=== PATIENT | male | born 1960 | race Caucasian/White ===

== ENCOUNTER 2020-10-30 13:46 | Outpatient (CLI) | payer OTHER ==
[~2020-10-30 13:46] MED LIST: PERCOCET 5/3251 TAB PO; POLY119PG PO; SURFAK240 M1 PO
== END 2020-10-30 13:52 | disposition home or self-care (01) ==
LOC: TOM 13:46
DX: K43.2 Incisional hernia without obstruction or gangrene (principal); R10.9 Unspecified abdominal pain

== ENCOUNTER 2021-02-03 12:18 | Inpatient (IN) | payer OTHER ==
[~2021-02-03] VITALS: Ht 175.3 cm; Wt 120.2 kg
[2021-02-03] MEDS ORDERED: LOSARTAN-HCTZ1 EAC2 (12:24)
[2021-02-03] MEDS ORDERED: SYMBICORT 16010.2 GM (12:25)
[2021-02-03] MEDS ORDERED: SINGULAIR10 MG PO (12:25)
--- NOTE | 2021-02-03 12:28 | NUR ---
PACIENTE MASCULINO ALERTA Y ORIENTADO, REFIERE TENER DOLOR DE PECHO Y UNAS PUNZADAS. SE LE REALIZA EKG AL PACIENTE Y SE LE MUESTRA A ROBERTO.RENTA REFIERE COLOCARLO EN CHEST PAIN.
--- NOTE | 2021-02-03 12:58 | NUR ---
SE RECIBE A PACIENTE EN UNIDAD DE CHEST PAIN. PACIENTE ALERTA Y ORIENTADO EN LAS JATINDER ESFERAS LLEGA A LA UNIDAD AMBULANDO. SE CONECTA A PACIENTE A MONITOR CARDIACO Y A OXIMETRIA DE PULSO. SE ORIENTA A PACIENTE SOBRE REGLAS DE LA UNIDAD Y SOBRE TRATAMIENTO A SEGUIR. SE COLECTAN MUESTRAS DE LABORATORIO Y SE CANALIZA A PACIENTE EN BRAZO PIPER SIGUIENDO TECNICAS ASEPTICAS. EL AREA SE VE LAI DE EDEMA. SE MANTIENE A PACIENTE BAJO OBSERVACION POR CAMBIOS. SE ESPERAN NUEVAS ORDENES MEDICAS.
--- NOTE | 2021-02-03 14:55 | NUR ---
1340 SE ADMINISTRAN MEDICAMENTOS GEM ORDEN MEDICA. SE ORIENTA A PACIENTE SOBRE INDICACION DE LOS MISMOS. PACIENTE REFIERE ENTENDER.
--- NOTE | 2021-02-03 15:33 | NUR ---
1500 SE RECIBE PTE MASCULINO ALERTA Y ORIENTADO EN LAS JATINDER ESFERAS CONECTADO A MONITOR CARDIACO Y OXIMETRIA DE PULSO CONTINUA, EN CAMA #17 DE UNIDAD DE CHESTPAIN. SE OBSERVA CON BUEN PATRON RESPIRATORIO Y REFIERE LEVE DOLOR EN EL AREA DEL PECHO, MD YA POSEE CONOCIMIENTO. VENOPUNCION PATENTE EN ANTEBRAZO L+, EN H/L, LAI DE EDEMA Y ERITEMA. PTE EN CAMA BAJA CON BRANADAS ELEVADAS Y FRENOS COLOCADOS POR SEGURIDAD, DEBIDAMENTE IDENTIFICADO. PENDIENTE MUESTRA DE LABORATORIO A LAS 5PM, CONSULTA CON Y DR.REYNEIRO GALVEZ; YA NOTIFICADAS. SE COLLIN Y REPORTAN S/V. SE MANTIENE BAJO OBSERVACION POR CAMBIOS EN ÁLVAREZ CONDICION.
[2021-02-05] MEDS ORDERED: ELIQUIS5 MG PO (11:30)
[2021-02-05] MEDS ORDERED: LIPITOR20 MG PO (11:31)
[2021-02-05] MEDS ORDERED: LOSARTAN-HCTZ1 EACH PO (11:31)
[2021-02-05] MEDS ORDERED: DILTIAZEM 24HR180 MG PO (11:31)
[2021-02-05] MEDS ORDERED: AMIODARONE HCL200 MG PO (11:31)
[2021-02-05] MEDS ORDERED: MONTELUKAST SOD10 MG PO (11:32)
== END 2021-02-05 12:23 | disposition home or self-care (01) | DRG 310 ==
LOC: ER 12:18 → ICU-2 17:28 → ICU 02-04 01:59
PROVIDERS: ADMIT Internal Medicine; ATTEND Internal Medicine
PROC: B24BZZZ Ultrasonography of Heart with Aorta (ICD-10-PCS; principal; 2021-02-04)
DX: I48.91 Unspecified atrial fibrillation (principal); I10 Essential (primary) hypertension; R07.89 Other chest pain; Z20.822 Contact with and (suspected) exposure to COVID-19; E66.9 Obesity, unspecified; Z68.34 Body mass index [BMI] 34.0-34.9, adult; G47.33 Obstructive sleep apnea (adult) (pediatric)